=== PATIENT | male | born 1940 | race Caucasian/White ===

== ENCOUNTER → 2020-11-19 10:07 | Outpatient (BNVA) | payer MEDICARE, SELFPAY | PROVIDERS: Visit Provider Urology | DX: Z13.89 Encounter for screening for other disorder (principal) | CPT/HCPCS: 99202 ==

== ENCOUNTER → 2020-12-31 11:17 | Outpatient (BNVA) | payer MEDICARE, SELFPAY | PROVIDERS: PCP Internal Medicine; Visit Provider Urology | DX: Z13.89 Encounter for screening for other disorder (principal) | CPT/HCPCS: Q3014 ==

== ENCOUNTER → 2021-11-15 09:54 | Outpatient (BNVA) | payer MEDICARE, SELFPAY | PROVIDERS: PCP Internal Medicine; Visit Provider Urology | DX: N32.0 Bladder-neck obstruction (principal); R97.20 Elevated prostate specific antigen [PSA]; R39.11 Hesitancy of micturition | CPT/HCPCS: 51798; 99212 ==

== ENCOUNTER → 2022-12-29 10:51 | Outpatient (BNVA) | payer MEDICARE, SELFPAY | PROVIDERS: PCP Internal Medicine; Visit Provider Urology | DX: R97.20 Elevated prostate specific antigen [PSA] (principal) | CPT/HCPCS: 51798; 99212 ==

== ENCOUNTER 2023-06-22 12:31 | Outpatient (REF) | payer MEDICARE, SELFPAY ==
[2023-06-22 14:29] LABS: PSA,Total (Free>4and<10) 5.61 ng/mL (0.00-4.00)
[2023-06-25 10:59] LABS: Free Prostate Spec Ag 0.7 ng/mL; Percent Free Prostate Spec Ag 12 % (calc) (>25); Prostate Specific Ag Total 5.9 ng/mL (< OR = 4.0)
== END 2023-06-22 12:32 | disposition home or self-care (01) ==
LOC: HO.10HDL 12:31
PROVIDERS: Visit Provider Urology
DX: R97.20 Elevated prostate specific antigen [PSA] (principal); Z12.5 Encounter for screening for malignant neoplasm of prostate
CPT/HCPCS: 36415; 84153; 84154

== ENCOUNTER 2023-07-04 11:15 | Outpatient (AMB) | payer MEDICARE, SELFPAY ==
--- NOTE | 2023-07-04 11:49 | MHC.OFFVIS ---
Intake Intake Visit Reasons: 6M PSA(set) Intake Note: Patient is Present for Follow Up PSA Urology Medication: Tamsulosin Antibiotic Allergies:None Blood Thinners: None Pharmacy: [facility] Allergies No Known Allergies Allergy (Verified 07/04/23 11:51) Medication List - Last Reconciled 07/04/23 by Ethan Schaffer MD amoxicillin-pot clavulanate 875-125 mg 1 tab PO BID atorvastatin 20 mg PO BEDTIME finasteride 5 mg PO DAILY 90 days flu vac qs 2019(4 yr up)CD(PF) mL IM levothyroxine 50 mcg PO DAILY metoprolol succinate ER 50 mg PO DAILY sildenafil 100 mg PO ONCE PRN 30 days tamsulosin 0.4 mg PO BEDTIME 90 days HPI HPI Comments History of Present Illness Details Ace is a very pleasant male. He is a patient of Dr. Lofton. He is seen for the following urologic conditions - lower urinary tract symptoms SHILPI normal PSA rise Repeat PSA in 6 months with free and total Known large prostate With suggest biopsy if continues Lower urinary tract symptoms Initial presentation was with weakness of stream Good response to alpha blockers - tamsulosin Initial symptoms weakness of stream, nocturia x2, incomplete bladder emptying Investigations - 11/28 bladder ultrasound 80 g prostate with effective bladder emptying, PVR less than 20 cc - PSA 11/28 3.0 through PCP, 07/29 4.1, 06/30 5.9 12% Very happy with current function would like to stay on single agent 6 month follow-up PSA [facility] Medical History Bladder outlet obstruction Elevated PSA History of urinary hesitancy Review of Systems Const Denies chills and Denies fever(s) Card Reports no additional complaints and Denies syncope Resp Denies cough GI Denies abdominal pain and Denies heartburn Reports as per HPI and Denies change in libido Neuro Denies syncope Psych Denies change in libido Endo Denies change in libido Physical Exam Const General: cooperative, healthy appearing, comfortable and no acute distress Orientation/consciousness: patient oriented x3 HEENT Face and sinus: Yes normal facial exam Mouth: moist mucous membranes Neck Neck: Yes normal visual inspection, Yes full ROM and Yes trachea midline Chest Chest palpation & inspection: normal inspection of the chest Resp Effort & Inspection: normal respiratory effort, able to speak in complete sentences and no respiratory distress GI Inspection: Yes normal to inspection Back/Spine/Pelvis Cervical Spine: normal cervical lordosis Thoracic/Lumbar Spine: thoracic and lumbar spine normal to inspection Skin General skin exam: no rashes or lesions noted Neuro General: patient oriented x3, gait normal, tone normal and moves all extremities Extrem General: Yes normal to inspection and Yes capillary refill normal Assessment & Plan Assessment & Plan (1) Erectile dysfunction: Code(s): N52.9 - Male erectile dysfunction, unspecified Qualifiers: 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 Qualified Code(s): N52.01 - Erectile dysfunction due to arterial insufficiency Plan Six month follow-up PSA Orders: Orders PSA,Total (Free>4and<10) 6 Months R97.20 - Elevated prostate specific antigen [PSA] Medications: New sildenafil administer 60 minutes before intended activity 100 mg PO ONCE 30 days PRN 30 tabs 0RF sexual activity N52.9 - Male erectile dysfunction, unspecified finasteride 5 mg PO DAILY 90 days 90 tabs 1RF N13.8 - Other obstructive and reflux uropathy, N32.0 - Bladder-neck obstruction, N40.1 - Benign prostatic hyperplasia with lower urinary tract symptoms, R33.9 - Retention of urine, unspecified Patient Instructions: Imaging studies, laboratory and physical exam results were discussed and reviewed in detail. No major barriers to patient understanding were identified. An opportunity to ask questions regarding the treatment plan was provided. All questions were answered. The patient expressed understanding and agreement with the above treatment plan. The patient is aware they should contact our office by phone for worsening of their current condition or the appearance of new urologic symptoms. Compliance is encouraged with any medications and followup testing that is ordered. It is a privilege to participate in the urologic care of your patient. If you have any questions or concerns regarding treatment for the above conditions, or other urologic issues, please do not hesitate to contact me. The office telephone contact is [phone]. This note is constructed using voice recognition software. While every effort has been made to ensure accuracy solderer furnace errors may have been included. 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
== END 2023-07-04 12:17 | disposition home or self-care (01) ==
PROVIDERS: PCP Internal Medicine; Visit Provider Urology
DX: N52.01 Erectile dysfunction due to arterial insufficiency (principal)
CPT/HCPCS: 99213

== ENCOUNTER → 2023-07-04 11:15 | Outpatient (BNVA) | payer MEDICARE, SELFPAY | PROVIDERS: Visit Provider Urology | DX: N40.1 Benign prostatic hyperplasia with lower urinary tract symptoms (principal); N13.8 Other obstructive and reflux uropathy; R97.20 Elevated prostate specific antigen [PSA]; R39.12 Poor urinary stream; R33.8 Other retention of urine; R35.1 Nocturia; N52.01 Erectile dysfunction due to arterial insufficiency | CPT/HCPCS: 99212 ==

== ENCOUNTER 2023-12-27 12:13 | Outpatient (REF) | payer MEDICARE, SELFPAY ==
[2023-12-27 14:10] LABS: PSA,Total (Free>4and<10) 3.69 ng/mL (0.00-4.00)
== END 2023-12-27 12:14 | disposition home or self-care (01) ==
LOC: HO.10HDL 12:13
PROVIDERS: Visit Provider Urology
DX: Z12.5 Encounter for screening for malignant neoplasm of prostate (principal); R97.20 Elevated prostate specific antigen [PSA]
CPT/HCPCS: 36415; 84153

== ENCOUNTER 2024-01-01 11:43 | Outpatient (AMB) | payer MEDICARE, SELFPAY ==
--- NOTE | 2024-01-01 11:54 | MHC.OFFVIS ---
Intake Intake Visit Reasons: 6M PSA/Med Review(Sildenafil/Finasteride)confirmed Intake Note: Patient is Present for Follow Up Urology Medication:Sildenafil, Tamsulosin (Pt is requesting Refill) Antibiotic Allergies:None Blood Thinners: None Patient states he is no longer taking finasteride, Pt states that while he was on the Finasteride but stopped due to reaction. Patient became very dizzy on medication Allergies No Known Allergies Allergy (Verified 07/04/23 11:51) Medication List - Last Reconciled 01/01/24 by Ethan Schaffer MD amoxicillin-pot clavulanate 875-125 mg 1 tab PO BID atorvastatin 20 mg PO BEDTIME finasteride 5 mg PO DAILY 90 days flu vac qs 2019(4 yr up)CD(PF) mL IM levothyroxine 50 mcg PO DAILY metoprolol succinate ER 50 mg PO DAILY sildenafil 100 mg PO ONCE PRN 30 days tamsulosin 0.4 mg PO BEDTIME 90 days HPI HPI Comments History of Present Illness Details Ace is a very pleasant male. He is a patient of Dr. Lfoton. He is seen for the following urologic conditions - lower urinary tract symptoms SHILPI normal PSA fell with finasteride Had dizziness with this medication Has come off Repeat PSA in 6 months May benefit from dutasteride Lower urinary tract symptoms Initial presentation was with weakness of stream Good response to alpha blockers - tamsulosin Initial symptoms weakness of stream, nocturia x2, incomplete bladder emptying Investigations - 11/28 bladder ultrasound 80 g prostate with effective bladder emptying, PVR less than 20 cc - PSA 11/28 3.0 through PCP, 07/29 4.1, 06/30 5.9 12%, 12/29 3.7 Very happy with current function would like to stay on single agent 6 month follow-up PSA [facility] Medical History Bladder outlet obstruction Elevated PSA History of urinary hesitancy Review of Systems Const Denies chills and Denies fever(s) Card Reports no additional complaints and Denies syncope Resp Denies cough GI Denies abdominal pain and Denies heartburn Reports as per HPI and Denies change in libido Neuro Denies syncope Psych Denies change in libido Endo Denies change in libido Physical Exam Const General: cooperative, healthy appearing, comfortable and no acute distress Orientation/consciousness: patient oriented x3 HEENT Face and sinus: Yes normal facial exam Mouth: moist mucous membranes Neck Neck: Yes normal visual inspection, Yes full ROM and Yes trachea midline Chest Chest palpation & inspection: normal inspection of the chest Resp Effort & Inspection: normal respiratory effort, able to speak in complete sentences and no respiratory distress GI Inspection: Yes normal to inspection Back/Spine/Pelvis Cervical Spine: normal cervical lordosis Thoracic/Lumbar Spine: thoracic and lumbar spine normal to inspection Skin General skin exam: no rashes or lesions noted Neuro General: patient oriented x3, gait normal, tone normal and moves all extremities Extrem General: Yes normal to inspection and Yes capillary refill normal Assessment & Plan Assessment & Plan (1) Bladder outlet obstruction: Code(s): N32.0 - Bladder-neck obstruction (2) Elevated PSA: Code(s): R97.20 - Elevated prostate specific antigen [PSA] Plan Six-month follow-up PSA Orders: Orders PSA,Total (Free>4and<10) 6 Months R97.20 - Elevated prostate specific antigen [PSA] Patient Instructions: Imaging studies, laboratory and physical exam results were discussed and reviewed in detail. No major barriers to patient understanding were identified. An opportunity to ask questions regarding the treatment plan was provided. All questions were answered. The patient expressed understanding and agreement with the above treatment plan. The patient is aware they should contact our office by phone for worsening of their current condition or the appearance of new urologic symptoms. Compliance is encouraged with any medications and followup testing that is ordered. It is a privilege to participate in the urologic care of your patient. If you have any questions or concerns regarding treatment for the above conditions, or other urologic issues, please do not hesitate to contact me. The office telephone contact is [phone]. This note is constructed using voice recognition software. While every effort has been made to ensure accuracy box closing machine operator errors may have been included. Yours sincerely, Dr Ethan Schaffer MD, [facility] - Urology Providers of Expert, Compassionate Care for the Genitourinary System Coding Level of Care Code Est Pt Level 3 (50219) Diagnoses Bladder outlet obstruction N32.0 Elevated PSA R97.20
== END 2024-01-01 12:22 | disposition home or self-care (01) ==
PROVIDERS: PCP Internal Medicine; Visit Provider Urology
DX: N32.0 Bladder-neck obstruction (principal); R97.20 Elevated prostate specific antigen [PSA]
CPT/HCPCS: 99213

== ENCOUNTER → 2024-01-01 11:43 | Outpatient (BNVA) | payer MEDICARE, SELFPAY | PROVIDERS: PCP Internal Medicine; Visit Provider Urology | DX: R39.12 Poor urinary stream (principal); N32.0 Bladder-neck obstruction; R97.20 Elevated prostate specific antigen [PSA]; Z79.899 Other long term (current) drug therapy | CPT/HCPCS: 99212 ==

== ENCOUNTER 2024-06-02 09:29 | Outpatient (REF) | payer MEDICARE, SELFPAY ==
[2024-06-02 11:26] LABS: PSA,Total (Free>4and<10) 2.33 ng/mL (0.00-4.00); Prostate Specific Antigen 2.34 ng/mL (<0.05-4.0)
== END 2024-06-02 09:30 | disposition home or self-care (01) ==
LOC: HO.10HDL 09:29
PROVIDERS: Visit Provider Urology
DX: Z12.5 Encounter for screening for malignant neoplasm of prostate (principal); R97.20 Elevated prostate specific antigen [PSA]
CPT/HCPCS: 36415; 84153

== ENCOUNTER 2024-06-11 09:57 | Outpatient (AMB) | payer MEDICARE, SELFPAY ==
--- NOTE | 2024-06-11 09:58 | A.OFFVIS_ITS ---
Intake Visit Reasons: 6M Follow Up- PSA(Set) Intake Note: Patient is Present for 6m Follow Up/psa Urology Medication:Sildenafil, Tamsulosin, dutasteride, finasteride Antibiotic Allergies:None Blood Thinners: None Correctional Officer Lieutenant Required: No Allergies No Known Allergies Allergy (Verified 06/11/24 09:59) HPI Comments Details: Ace is a very pleasant male. He is a patient of Dr. Lofton. He is seen for the following urologic conditions - lower urinary tract symptoms Six-month follow-up repeat PSA Prior SHILPI normal PSA fell with finasteride - ceased secondary to side effects PSA remains low Follow-up in 12 months Suffering dizziness Has upcoming appointment with PCP Discussed potential possibilities including middle ear, cardiovascular He will concentrate on trying to assess situations where he is dizzy Lower urinary tract symptoms Initial presentation was with weakness of stream Good response to alpha blockers - tamsulosin Initial symptoms weakness of stream, nocturia x2, incomplete bladder emptying Investigations - 11/28 bladder ultrasound 80 g prostate with effective bladder emptying, PVR less than 20 cc - PSA 11/28 3.0 through PCP, 07/29 4.1, 06/30 5.9 12%, 12/29 3.7, 07/01 2.3 Very happy with current function would like to stay on single agent PFSH Medical History Bladder outlet obstruction Elevated PSA History of urinary hesitancy Review of Systems Const Denies chills and Denies fever(s) Card Reports no additional complaints and Denies syncope Resp Denies cough GI Denies abdominal pain and Denies heartburn Reports as per HPI and Denies change in libido Neuro Denies syncope Psych Denies change in libido Endo Denies change in libido Physical Exam Const General: cooperative, healthy appearing, comfortable and no acute distress Orientation/consciousness: patient oriented x3 HEENT Face and sinus: Yes normal facial exam Mouth: moist mucous membranes Neck Neck: Yes normal visual inspection, Yes full ROM and Yes trachea midline Chest Chest palpation & inspection: normal inspection of the chest Resp Effort & Inspection: normal respiratory effort, able to speak in complete sentences and no respiratory distress GI Inspection: Yes normal to inspection Back/Spine/Pelvis Cervical Spine: normal cervical lordosis Thoracic/Lumbar Spine: thoracic and lumbar spine normal to inspection Skin General skin exam: no rashes or lesions noted Neuro General: patient oriented x3, gait normal, tone normal and moves all extremities Extrem General: Yes normal to inspection and Yes capillary refill normal Results AMB Urinalysis, Automated UA Leukoctes 0 Jessy/uL Last Edit by KEN Potter on 06/11/24 10:14 UA Nitrite Negative Last Edit by Mishel Jasmine CCM on 06/11/24 10:14 UA Urobilinogen 0.2 mg/dL Last Edit by Mishel Jasmine CCM on 06/11/24 10:1 4 UA Protein 15 mg/dL Last Edit by Mishel Jasmine [facility] on 06/11/24 10:14 UA pH 6.0 Last Edit by Mishel Jasmine [facility] on 06/11/24 10:14 UA Blood 0 Severiano/uL Last Edit by Mishel Jasmine [facility] on 06/11/24 10:14 UA Specific Nephi 1.030 Last Edit by Mishel Jasmine [facility] on 06/11/24 10: 14 UA Ketone Positive Last Edit by Mishel Jasmine [facility] on 06/11/24 10:14 UA Bilirubin 2 mg/dL Last Edit by Mishel Jasmine [facility] on 06/11/24 10:14 UA Glucose 0 mg/dL Last Edit by Mishel Jasmine [facility] on 06/11/24 10:14 Results Reviewed Results Reviewed: Laboratory Last Values Urine pH (Auto) 6.0 06/11/24 10:14 Specific Nephi (Auto) 1.030 06/11/24 10:14 Urine Protein (Auto) 15 mg/dL 06/11/24 10:14 Glucose (UA)(Auto) 0 mg/dL 06/11/24 10:14 Urine Ketones (Auto) Positive 06/11/24 10:14 Urine Blood (Auto) 0 Severiano/uL 06/11/24 10:14 Urine Nitrite (Auto) Negative 06/11/24 10:14 Urine Bilirubin (Auto) 2 mg/dL 06/11/24 10:14 Urine Urobilinogen (Auto) 0.2 mg/dL 06/11/24 10:14 Leukocyte Esterase (Auto) 0 Jessy/uL 06/11/24 10:14 Assessment & Plan Assessment & Plan (1) Erectile dysfunction: Code(s): N52.9 - Male erectile dysfunction, unspecified Category: Medical Qualifiers: 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 No major barriers to patient understanding were identified. An opportunity to ask questions regarding the treatment plan was provided. All questions were answered. The patient expressed understanding and agreement with the above treatment plan. The patient is aware they should contact our office by phone for worsening of their current condition or the appearance of new urologic symptoms. Compliance is encouraged with any medications and followup testing that is ordered. It is a privilege to participate in the urologic care of your patient. If you have any questions or concerns regarding treatment for the above conditions, or other urologic issues, please do not hesitate to contact me. The office telephone contact is [phone]. This note is constructed using voice recognition software. While every effort has been made to ensure accuracy system safety manager errors may have been included. 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
== END 2024-06-11 10:29 | disposition home or self-care (01) ==
PROVIDERS: PCP Internal Medicine; Visit Provider Urology
DX: N52.01 Erectile dysfunction due to arterial insufficiency (principal); R39.11 Hesitancy of micturition; R97.20 Elevated prostate specific antigen [PSA]; Z13.9 Encounter for screening, unspecified
CPT/HCPCS: 99213

== ENCOUNTER → 2024-06-11 09:57 | Outpatient (BNVA) | payer MEDICARE, SELFPAY | PROVIDERS: PCP Internal Medicine; Visit Provider Urology | DX: R97.20 Elevated prostate specific antigen [PSA] (principal); R39.11 Hesitancy of micturition; N52.01 Erectile dysfunction due to arterial insufficiency | CPT/HCPCS: 81003; 99212 ==

== ENCOUNTER 2025-06-01 10:00 | Outpatient (REF) | payer MEDICARE, SELFPAY ==
--- OUTSIDE RECORDS SUMMARY | 2025-06-01 11:00 | XMS_ITS ---
Author Name [facility] Organization Unknown Problems Problem Status Onset Date Problem Type Date of Resoluti on Source Anemia active EncounterDiagnosisAct CCT
--- OUTSIDE RECORDS SUMMARY | 2025-06-01 11:00 | XMS_ITS | Clinical Summary ---
Author Organization [facility], Address [address] [place] [address] Phone Care Team Providers Care Band Top Maker Name Role Phone Kevin Lofton MD Primary Care Provider Allergies No known active allergies Medications levothyroxine (SYNTHROID, LEVOTHROID) 50 MCG tablet Take 50 mcg by mouth daily 08/25/2020 Active metoprolol succinate XL (TOPROL-XL) 50 MG 24 hr tablet Take 50 mg by mouth daily 08/25/2020 Active atorvastatin (LIPITOR) 20 MG tablet Take 20 mg by mouth every night 08/25/2020 Active tamsulosin (FLOMAX) 0.4 MG 24 hr capsule Take 0.4 mg by mouth 1 (one) time each day Active Blaine-3 Fatty Acids (Fish Oil) 1200 MG capsule delayed-release Take by mouth Active Active Problems Problem Noted Date Diagnosed Date Serum creatinine above reference range Hypercholesterolemia 10/12/2020 Essential (primary) hypertension 10/12/2020 Immunizations Immunization Administration Dates Next Due Influenza, MDCK, PF, Quadrivalent 07/01/2020 Family History Medical History Relation Comments Emphysema Father Hypertension Mother Relation Status Comments Father Mother Sister Alive Social History Tobacco Use Types Packs/Day Years Used Date Smoking Tobacco: Never Smokeless Tobacco: Never Alcohol Use Standard Drinks/Week Comments Never 0 (1 standard drink = 0.6 oz pur e alcohol) AUDIT-C Answer Date Recorded Q1: How often do you have a drink containing alc ohol? Never 10/12/2020 Average Number of Drinks Not on file 021 Frequency of Binge Drinking Not on file 02/2021 Sex and Gender Information Value Date Recorded Sex Assigned at Not on file Legal Sex Male 2:25 PM EST Gender Identity Not on file Sexual Orientation Not on file Plan of Treatment Health Maintenance Due Date Last Done Comments Pneumococcal Vaccine: 50+ Ye ars (1 of 2 - PCV) 1961 Influenza Vaccine (#1) 2025 07/01/2020 Hepatitis B Vaccine Aged Out No longe r eligible based on patient's age to complete this topic Insurance [facility] Care Teams Band Top Maker Relationship Specialty Start Date End Date Kevin Lofton MD [address] PCP - General Internal Medicine 09/28/20
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
--- OUTSIDE RECORDS SUMMARY | 2025-06-01 11:00 | XMS_ITS | Clinical Summary ---
Author Organization [facility] Address [address] [place] [address] Care Team Providers Care Information Scientist Name Role Phone Kevin Lofton MD Primary Care Provider [phone] Social History Tobacco Use Types Packs/Day Years Used Date Smoking Tobacco: Never Assessed Sex and Gender Information Value Date Recorded Sex Assigned at Not on file Legal Sex Male 10:43 AM EST Gender Identity Not on file Sexual Orientation Not on file Plan of Treatment Health Maintenance Due Date Last Done Comments DTaP/Tdap/Td Vaccines (1 - Tdap) 1959 Pneumococcal Vaccines 50+ (1 of 1 - PCV) 1992 Zoster (Shingles) Vaccine (1 of 2) 1992 RSV Vaccine 60 years and old er and Patients (1 - 1-dose 75+ series) 2017 COVID-19 Vaccine (2023-2 5 season) 2024 Influenza Vaccine 05/08/2025 Hepatitis B Vaccines Aged Out No long er eligible based on patient's age to complete this topic Insurance [facility] MEDIC[facility] Care Teams Information Scientist Relationship Specialty Start Date End Date Kevin Lofton MD [address] [place] [address] PCP - General Internal Medicine 09/19/24
[2025-06-01 12:01] LABS: Prostate Specific Antigen 7.13 ng/mL (<0.05-4.0)
== END 2025-06-01 10:01 | disposition home or self-care (01) ==
LOC: HO.10HDL 10:00
PROVIDERS: Visit Provider Urology
DX: Z12.5 Encounter for screening for malignant neoplasm of prostate (principal); N32.0 Bladder-neck obstruction
CPT/HCPCS: 36415; 84153

== ENCOUNTER 2025-06-11 08:33 | Outpatient (AMB) | payer MEDICARE, SELFPAY ==
--- OUTSIDE RECORDS SUMMARY | 2025-06-05 14:53 | XMS_ITS | Encounter Summary ---
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 levothyroxine (SYNTHROID, LEVOTHROID) 50 mcg tablet Take 1 tablet (50 mcg total) by mouth 1 (one) time each day before breakfast. metoprolol succinate (TOPROL-XL) 25 mg 24 hr tablet Take 1 tablet (25 mg total) by mouth 1 (one) time each day. tamsulosin (FLOMAX) 0.4 mg 24 hr capsule Take 1 capsule (0.4 mg total) by mouth. at bedtime traZODone (DESYREL) 50 mg tablet Take 1 tablet (50 mg total) by mouth at bedtime as needed. 03/25/2025 documented as of this encounter Discharge Disposition Disposition Code Departure Means Destination Home or Self Care documented in this encounter Progress Notes * Sultana Salcedo RN - 06/05/2025 3:00 PM EDT 1515: PT arrives this afternoon for pre treatment port drawn labs. PT reports feeling well after cycle 1, has mild cold sensitivity to mouth when trying to eat ice cream. Although PT denies cold sensitivity to hands nor feet. Port accessed, +BR noted after 2 flushes, labs obtained and sent, flushedper protocol and deaccessed, dressing applied. PT aware of apt Sunday, left unit amb, stable at D/C. documented in this encounter Plan of Treatment Upcoming Encounters Date Type Department Care Team (Late st Contact Info) Description 06/11/2025 12:00 PM EDT Appointment [facility] [address] [place] [phone] 06/22/2025 11:30 AM EDT Appointment [facility] [address] [place] [phone] 06/23/2025 10:00 AM EDT Appointment [facility] [address] [place] [phone] 07/06/2025 3:00 PM EDT Office Visit [facility] Oncology [address] [place] [phone] Oneil Molina MD [address] [place] [address] documented as of this encounter Procedures Procedure Name Priority Date/Time Associated Diagnosis Comments CBC WITH AUTO DIFFERENTIAL Routine 06/05/2025 2:59 PM EDT 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, CMS/HCC V28) CBC AND DIFFERENTIAL Routine 06/05/2025 2:59 PM EDT 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, CMS/HCC V28) COMPREHENSIVE METABOLIC PANEL Routine 06/05/2025 2:59 PM EDT 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, CMS/HCC V28) documented in this encounter Results * (ABNORMAL) CBC auto differential (06/05/2025 2:59 PM EDT) WBC 3.1(L) 4.8 - 10.8 K/mcL LAB HEMETOLOGY METHOD 06/05/2025 6:53 PM EDT [facility] RBC 4.10(L) 4.50 - 5.50 M/mcL LAB HEMETOLOGY METHOD [facility]/05[facility]25 6[facility] Hemoglobin 11.5(L) 13.5 - 17.5 g/dL LAB HEMETOLOGY METHOD 06/05/2025 6:53 PM EDT [facility] Hematocrit 35.1(L) 42.0 - 54.0 % LAB HEMETOLOGY METHOD 06/05/2025 6:53 PM EDT [facility] MCV 86.7 79.0 - 98.0 FL LAB HEMETOLOGY METHOD 06/05/2025 6:53 PM [facility] MCH 28.4 27.0 - 32.0 pcg LAB HEMETOLOGY METHOD 06/05/2025 6:53 PM EDT [facility] MCHC 32.8 32.0 - 37.0 g/dL LAB HEMETOLOGY METHOD 06/05/2025 6:53 PM [facility] RDW 16.5(H) 11.0 - 15.0 % LAB HEMETOLOGY METHOD 06/05/2025 6:53 PM EDT [facility] Platelets 142 130 - 400 K/mcL LAB HEMETOLOGY METHOD 06/05/2025 6:53 PM EDT [facility] MPV 10.1 7.0 - 11.0 FL LAB HEMETOLOGY METHOD 06/05/2025 6:53 PM [facility] NRBC 0.0 <1.0 % LAB HEMETOLOGY METHOD 06/05/2025 6:53 PM [facility] NRBC Absolute 0.00 <0.10 K/mcL LAB HEMETOLOGY METHOD 06/05/2025 6:53 PM [facility] Neutrophils Relative 58.3 % LAB HEMETOLOGY METHOD 06/05/2025 6:53 PM [facility] Lymphocytes Relative 29.6 % LAB HEMETOLOGY METHOD 06/05/2025 6:53 PM [facility] Monocytes Relative 8.0 % LAB HEMETOLOGY METHOD 06/05/2025 6:53 PM [facility] Eosinophils Relative 3.2 % LAB HEMETOLOGY METHOD 06/05/2025 6:53 PM [facility] Basophils Relative 0.6 % LAB HEMETOLOGY METHOD 06/05/2025 6:53 PM [facility] Immature Granulocytes Relative 0.3 % LAB HEMETOLOGY METHOD 06/05/2025 6:53 PM [facility] Neutrophils Absolute 1.81 1.50 - 7.00 K/mcL LAB HEMETOLOGY METHOD 06/05/2025 6:53 PM EDT [facility] Lymphocytes Absolute 0.92(L) 1.00 - 5.00 K/mcL LAB HEMETOLOGY METHOD 06/05/2025 6:53 PM EDT [facility] Monocytes Absolute 0.25 0.20 - 1.00 K/mcL LAB HEMETOLOGY METHOD 06/05/2025 6:53 PM EDT [facility] Eosinophils Absolute 0.10 0.00 - 0.50 K/mcL LAB HEMETOLOGY METHOD 06/05/2025 6:53 PM EDT [facility] Basophils Absolute 0.02 0.00 - 0.20 K/mcL LAB HEMETOLOGY METHOD 06/05/2025 6:53 PM EDT [facility] Immature Granulocytes Absolute 0.01 0.00 - 0.03 K/mcL LAB HEMETOLOGY METHOD 06/05/2025 6:53 PM EDT [facility] Blood Blood sample taken from central line / Unknown Existing Catheter / Unknown 06/05/2025 2:59 PM EDT 06/05/2025 6:52 PM EDT Oneil Molina MD LAB BLOOD ORDERABLE S Final Result [facility] [address] [place] [address], * (ABNORMAL) Comprehensive metabolic panel (06/05/2025 2:59 PM EDT) Sodium 140 133 - 145 mmol/L LAB CHEMISTRY METHOD 06/05/2025 5:09 PM EDT [facility] Potassium 4.0 3.5 - 5.5 mmol/L LAB CHEMISTRY METHOD 06/05/2025 5:09 PM [facility] Chloride 108 96 - 110 mmol/L LAB CHEMISTRY METHOD 06/05/2025 5:09 PM [facility] CO2 28 21 - 32 mmol/L LAB CHEMISTRY METHOD 06/05/2025 5:09 PM [facility] Anion Gap 4 3 - 11 LAB CHEMISTRY METHOD 06/05/2025 5:09 PM [facility] Glucose 99 70 - 100 mg/dL LAB CHEMISTRY METHOD 06/05/2025 5:09 PM [facility] BUN 17 5 - 25 mg/dL LAB CHEMISTRY METHOD 06/05/2025 5:09 PM [facility] Creatinine 1.45(H) 0.70 - 1.30 mg/dL LAB CHEMISTRY METHOD 06/05/2025 5:09 PM [facility] eGFR 48(L) >=60 mL/min/1. 73m2 LAB CHEMISTRY METHOD 06/05/2025 5:09 PM [facility] Comment:Calculation based on the Chronic Kidney Disease Epidemiology Collaboration (CKD-EPI) equation refit without adjustment for race. BUN/Creatinine Ratio 11.7 LAB CHEMISTRY METHOD 06/05/2025 5:09 PM [facility] Calcium 8.8 8.5 - 10.5 mg/dL LAB CHEMISTRY METHOD 06/05/2025 5:09 PM [facility] AST (SGOT) 14 10 - 42 unit/L LAB CHEMISTRY METHOD 06/05/2025 5:09 PM [facility] ALT (SGPT) 14 10 - 60 unit/L LAB CHEMISTRY METHOD 06/05/2025 5:09 PM [facility] Alkaline Phosphatase 75 42 - 121 unit/L LAB CHEMISTRY METHOD 06/05/2025 5:09 PM [facility] Total Protein 6.2 6.0 - 8.0 g/dL LAB CHEMISTRY METHOD 06/05/2025 5:09 PM [facility] Albumin 3.7 3.2 - 5.0 g/dL LAB CHEMISTRY METHOD 06/05/2025 5:09 PM EDT [facility] Total Bilirubin 1.0 0.0 - 1.4 mg/dL LAB CHEMISTRY METHOD 06/05/2025 5:09 PM EDT [facility] Blood Blood sample taken from central line / Unknown Existing Catheter / Unknown 06/05/2025 2:59 PM EDT 06/05/2025 4:33 PM EDT us Subramony Jesse DIOP LAB BLOOD ORDERABLE S Final Result [facility] [address] [place] [address], documented in this encounter Visit Diagnoses Diagnosis 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
--- OUTSIDE RECORDS SUMMARY | 2025-06-09 09:45 | XMS_ITS | Encounter Summary ---
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, CMS/HCC V28) Oneil Molina MD [address] [place] [address] Phone: tel: fax: [facility] [address] [place] [phone] Phone: tel: fax: Referral ID Status Reason Start Date Expiration Date V isits Requested Visits Authorized [id number] Authorized 05/18/2025 05/18/2026 1 13 Encounter Details Date Type Department Care Team (Latest Contact Info) Description 06/09/2025 9:45 AM EDT Hospital Encounter [facility] [address] [place] [phone] Oneil Molina MD [address] [place] [address] 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, CMS/HCC V28) (Primary Dx) Social History Tobacco Use Types Packs/Day Years [...] AM EDT documented as of this encounter Last Filed Vital Signs Vital Sign Reading Time Taken Comments Blood Pressure 117/57 06/09/2025 9:55 AM EDT Pulse 67 06/09/2025 9:55 AM EDT Temperature 36.6 C (97.8 F) 06/09/2025 9:55 AM EDT Respiratory Rate - - Oxygen Saturation 100% 06/09/2025 9:55 AM EDT Inhaled Oxygen Concentration - - Weight 79.5 kg (175 lb 3.2 oz) 06/09/2025 9:55 A M EDT Height 177.8 cm (5' 10 ) 06/09/2025 9:55 AM EDT Body Mass Index 25.14 06/09/2025 9:55 AM EDT documented in this encounter Progress Notes * Deidra Hess RN - 06/09/2025 10:00 AM EDT Pt arrives fro C2 of chemo with steady gait to unit . documented in this encounter Plan of Treatment Upcoming Encounters Date Type Department Care Team (Late st Contact Info) Description 06/11/2025 12:00 PM EDT Appointment [facility] [address] [place] [phone] 06/22/2025 11:30 AM EDT Appointment [facility] [address] [place] [phone] 06/23/2025 10:00 AM EDT Appointment [facility] [address] [place] [phone] 07/06/2025 3:00 PM EDT Office Visit [facility] On[facility] [address] [place] [address] Oneil Molina MD [address] [place] [phone] documented as of this encounter Visit Diagnoses Diagnosis 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, CMS/HCC V28)- Primary Malignant neoplasm of hepatic flexure documented in this encounter Administered Medications Inactive Administered Medications - up to 3 most recent administrations Medication Order MAR Action Action Date Dose Rate Site dexAMETHasone (DECADRON) injection 12 mg 12 mg, intravenous, Once, On Sun06/09/25 at 1030, For 1 doseIndications: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 This agent requires a central venous access device for administration in this regimen. Protect from light Antineoplastic Hazardous Medication - Double pair of ASTM standard [id number] certified gloves - Hazardous gown - Eye/face protection if liquid that could splash - CSTD required when possibleIndications:Malignan t neoplasm of hepatic flexure (CMS/HCC V24, CMS/HCC V28) Given 06/09/2025 2:07 PM EDT 4,750 mg 3 mL/hr fluorouracil (ADRUCIL) chemo injection 800 mg 800 mg (rounded from 788 mg = 400 mg/m2 1.97 m2), intravenous, at 96 mL/hr, Administer over 10 Minutes, Once, On Sun06/09/25 at 1230, For 1 dose, IV push Protect from light Antineoplastic Hazardous Medication - Double pair of ASTM standard [id number] certified gloves - Hazardous gown - Eye/face protection if liquid that could splash - CSTD required when possibleIndications:Malignan t neoplasm of hepatic flexure (CMS/HCC V24, CMS/HCC V28) Given 06/09/2025 2:07 PM EDT 800 mg 96 mL/hr leucovorin 800 mg in dextrose 290 mL IVPB 800 mg (rounded from 788 mg = 400 mg/m2 1.97 m2), intravenous, at 193.3 mL/hr, Administer over 90 Minutes, Once, On Sun06/09/25 at 1100, For 1 dose, Run concurrent with OXALIplatin infusion, so that the two drugs end at approximately the same time.Indications: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 This agent is an irritant. Infuse OXALiplatin and leucovorin concurrently. Antineoplastic Hazardous Medication - Double pair of ASTM standard [id number] certified gloves - Hazardous gown - Eye/face protection if liquid that could splash - CSTD required when possibleIndications:Malignan t neoplasm of hepatic flexure (CMS/HCC V24, CMS/HCC V28) New Bag 06/09/2025 11:48 AM EDT 165 mg 188.7 mL/hr documented in this encounter Orders Medications Ordered That Milo ht Not Have Been Administered Count Last Ordered Date First Ordered Date ondansetron (PF) (ZOFRAN) injection 16 mg 1 06/09/2025 Nursing Count Last Ordered Date First Orde red Date NCCN PARAMETERS 1 06/09/2025 NCCN PARAMETERS - FLUOROURACIL 1 06/09/2025 NCCN PARAMETERS - LEUCOVORIN 1 06/09/2025 NCCN PARAMETERS - OXALIPLATIN 1 06/09/2025 ONC NURSING COMMUNICATION 2 06/09/2025 ONC NURSING COMMUNICATION 11 1 06/09/2025 ONC NURSING COMMUNICATION 2 1 06/09/2025 ONC NURSING COMMUNICATION 3 1 06/09/2025 TREATMENT CONDITIONS 3 06/09/2025 documented in this encounter Care Teams Music Grapher Relationship Specialty Start Date End Date Kevin Lofton MD [address] [place] [address] PCP - General Internal Medicine 10/28/24 documented as of this encounter
--- NOTE | 2025-06-11 08:33 | MHC.OFFVIS ---
Intake Visit Reasons: 1y/PSA Intake Note: Patient is Present for 1 yr follow up Urology Medication:, Tamsulosin, Antibiotic Allergies:None Blood Thinners: None Labs done 06/01/25 : PSA 7.13 Sql Database Administrator Required: No Accompanied by: Self / Same As Patient Allergies No Known Allergies Allergy (Verified 06/11/25 08:34) HPI Comments Details: Ace is a very pleasant male. He is a patient of Dr. Lofton. He is seen for the following urologic conditions - lower urinary tract symptoms Twelve month follow-up Prior SHILPI normal PSA fell with finasteride - ceased secondary to side effects Rebound PSA increase Currently undergoing chemotherapy for colorectal cancer Urinary Symptoms Review - Normal urinary stream with effective bladder emptying - Tamsulosin is effective in managing urinary symptoms Lower urinary tract symptoms Initial presentation was with weakness of stream Good response to alpha blockers - tamsulosin Initial symptoms weakness of stream, nocturia x2, incomplete bladder emptying Investigations - 11/28 bladder ultrasound 80 g prostate with effective bladder emptying, PVR less than 20 cc - PSA 11/28 3.0 through PCP, 07/29 4.1, 06/30 5.9 12%, 12/29 3.7, 07/01 2.3, 06/01 7.2 Very happy with current function would like to stay on single agent PFSH Medical History Bladder outlet obstruction Elevated PSA History of urinary hesitancy Review of Systems Const Denies chills and Denies fever(s) Card Reports no additional complaints and Denies syncope Resp Denies cough GI Denies abdominal pain and Denies heartburn Reports as per HPI and Denies change in libido Neuro Denies syncope Psych Denies change in libido Endo Denies change in libido Physical Exam Const General: cooperative, healthy appearing, comfortable and no acute distress Orientation/consciousness: patient oriented x3 HEENT Face and sinus: Yes normal facial exam Mouth: moist mucous membranes Neck Neck: Yes normal visual inspection, Yes full ROM and Yes trachea midline Chest Chest palpation & inspection: normal inspection of the chest Resp Effort & Inspection: normal respiratory effort, able to speak in complete sentences and no respiratory distress GI Inspection: Yes normal to inspection Back/Spine/Pelvis Cervical Spine: normal cervical lordosis Thoracic/Lumbar Spine: thoracic and lumbar spine normal to inspection Skin General skin exam: no rashes or lesions noted Neuro General: patient oriented x3, gait normal, tone normal and moves all extremities Extrem General: Yes normal to inspection and Yes capillary refill normal Assessment & Plan Assessment & Plan (1) Bladder outlet obstruction: Code(s): N32.0 - Bladder-neck obstruction Category: Medical (2) Erectile dysfunction: Code(s): N52.9 - Male erectile dysfunction, unspecified Category: Medical Qualifiers: 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 Onychomycosis - DNA testing for diagnosis Discussion Notes I discussed with the patient the importance of continuing PSA monitoring and the effectiveness of tamsulosin for urinary symptoms. We also reviewed the ongoing chemotherapy for colorectal cancer and the potential side effects to watch for, such as fatigue and brain fog. Additionally, I suggested considering DNA testing for onychomycosis to ensure accurate diagnosis and treatment. Patient Instructions - Continue taking tamsulosin as prescribed. - Monitor for any new or worsening symptoms and report them. - Schedule annual PSA tests. - Consider DNA testing for nail issues. Orders: Orders PSA,Total (Free>4and<10) 12 Months N32.0 - Bladder-neck obstruction Medications: Refilled tamsulosin 0.4 mg PO BEDTIME 90 caps 3RF 90 days N32.0 - Bladder-neck obstruction, N40.1 - Benign prostatic hyperplasia with lower urinary tract symptoms Patient Instructions: This note is constructed using voice recognition software. While every effort has been made to ensure accuracy diesel trailer mechanic errors may have been included. Imaging studies, laboratory and physical exam results were discussed and reviewed in detail. No major barriers to patient understanding were identified. An opportunity to ask questions regarding the treatment plan was provided. All questions were answered. The patient expressed understanding and agreement with the above treatment plan. The patient is aware they should contact our office by phone for worsening of their current condition or the appearance of new urologic symptoms. Compliance is encouraged with any medications and followup testing that is ordered. It is a privilege to participate in the urologic care of your patient. If you have any questions or concerns regarding treatment for the above conditions, or other urologic issues, please do not hesitate to contact me. The office telephone contact is [phone]. 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
--- OUTSIDE RECORDS SUMMARY | 2025-06-11 09:04 | XMS_ITS | Clinical Summary ---
Author Organization [facility], Address [address] [place] [address] Phone Care Team Providers Care Communications Strategist Name Role Phone Kevin Lofton MD Primary Care Provider [phone] Allergies No known active allergies Medications levothyroxine [...] mouth 1 (one) time each day Active [place]-3 Fatty Acids (Fish Oil) 1200 MG capsule [...] patient's age to complete this topic Insurance [facility] Care Teams Communications Strategist Relationship Specialty Start Date End Date Kevin Lofton MD [address] PCP - General Internal Medicine 09/28/20
--- OUTSIDE RECORDS SUMMARY | 2025-06-11 09:04 | XMS_ITS | Encounter Summary ---
Author Organization [facility] Address [address] [place] [address] Care Team Providers Care Scout Executive Name Role Phone Kevin Lofton MD Primary Care Provider [phone] Encounter Details Date Type Department Care Team (Late st Contact Info) Description 05/19/[address] [phone] Ekta Gutiérrez [place] Social History Tobacco Use [...] Info) Description 06/11/2025 12:00 PM EDT Appointment [facility] [address] [place] [phone] 06/22/2025 11:30 AM EDT Appointment [facility] [address] [place] [phone] 06/23/2025 10:00 AM EDT Appointment [facility] [address] [place] [address], [place] [phone] 07/06/2025 3:00 PM EDT Office Visit [facility] Oncology [address] [place] [phone] Oneil Molina MD [address] [place] [phone] documented as of this encounter Visit Diagnoses Not on filedocumented in this encounter Care Teams Scout Executive Relationship Specialty Start Date End Date Kevin Lofton MD [address] [place] [address] PCP - General Internal Medicine 10/28/24 documented as of this encounter
--- OUTSIDE RECORDS SUMMARY | 2025-06-11 09:04 | XMS_ITS | Clinical Summary ---
Author Organization Formerly [facility] Address [address] [place] [address] Care Team Providers Care Metal Gauge Maker Name Role Phone Kevin Lofton MD Primary Care Provider [phone] Social History Tobacco Use Types Packs/Day Years Used Date Smoking Tobacco: Never Assessed Sex and Gender Information Value Date Recorded Sex Assigned at Not on file Legal Sex Male 10:43 AM EST Gender Identity Not on file Sexual Orientation Not on file Plan of Treatment Health Maintenance Due Date Last Done Comments Advance Care Planning 1940 DTaP/Tdap/Td Vaccines (1 - Tdap) 1961 Pneumococcal Vaccines 50+ (1 of 1 - PCV) 1992 Zoster (Shingles) Vaccine (1 of 2) 1992 RSV Vaccine 60 years and old er and Patients (1 - 1-dose 75+ series) 2017 COVID-19 Vaccine ( - 2023-2 5 season) 2024 Influenza Vaccine 05/08/2025 Hepatitis B Vaccines Aged Out No long er eligible based on patient's age to complete this topic Insurance [facility] MEDICARE Care Teams Metal Gauge Maker Relationship Specialty Start Date End Date Kevin Lofton MD [address] [place] [address] PCP - General Internal Medicine 09/19/24
--- OUTSIDE RECORDS SUMMARY | 2025-06-11 09:04 | XMS_ITS ---
Author Organization [facility] [address] [facility] Address [address] [place] [address] Phone Care Team Providers Care Power Lineman Name Role Phone Kevin Lofton MD Primary Care Provider [phone] Active Problems Problem Noted Date Diagnosed Date Neuroendocrine carcinoma of appendix ([facility] V24, [facility] V28) 04/06/2025 Bloating 02/26/2025 Iron deficiency anemia due to chronic blood loss 02/20/2025 Malignant neoplasm of hepati c flexure ([facility] V24, [facility] V28) 02/05/2025 Cancer Staging:Pathologic stage from 03/09/2025:Stage IIIB(pT3, pN1b, cM0) - Signed by Oneil Molina MD on 04/06/2025 HTN (hypertension) 02/04/2025 Pacemaker 02/04/2025 Hypothyroidism 02/04/2025 Chronic renal impairment, 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) ([facility] V24, [facility] V28) 02/04/2025 Current Oncology Plans FOLFOX ( Fluorouracil Continuous Infusion / Leucovorin / OXALIplatin )* Plan Start Date:05/24/2025 Plan Provider:Oneil Molina MD Linked Problems Malignant neoplasm of hepati c flexure ([facility] V24, [facility] V28) Treatment Medications Current Day (Day 1 , Cycle 3 - Planned for 06/22/2025) Next Day (Day 3, Cycle 3 - Planned for 06/24/2025) 5-FU (ADRUCIL) chemo infusio n 100 mL - for home use solutionfluorouracil (ADRUCIL)leucovorinleucovorin IVPB in D5W (350 mg vial)OXALIplatin (ELOXATIN)OXALIplatin (ELOXATIN) chemo infusion fluorouracil (ADRUCIL) 4,750 mg in sodium chloride 0.9 % 100 mL chemo infusionfluorouracil (ADRUCIL) chemo injectionleucovorin IVPBOXALIplatin (ELOXATIN) chemo infusion No medications scheduled. Other Current Plans FERUMOXYTOL ( FERAHEME ) 510 mg IVPB* Plan Start Date:02/27/2025 Plan Provider:Oneil Molina MD Linked Problems Iron deficiency anemia due t o chronic blood loss Treatment Medications No medications scheduled. Past Plans No past plan information found. Radiation Treatments * No radiation treatments are documented for this patient in [facility]. Treatments may have been administered in another system. Lifetime Dose Tracking * Chemical Lifetime Dose Automatic Entry Manual Entr y Fluoro Time 1.7 minutes 1.7 minutes 0 minutes Air Kerma 23 mGy 23 mGy 0 mGy
--- OUTSIDE RECORDS SUMMARY | 2025-06-11 09:04 | XMS_ITS | Clinical Summary ---
Author Organization [facility] [address] [facility] Address [address] [place] [address] Phone Care Team Providers Care Morphology Teacher Name Role Phone Kevin Lofton MD Primary Care Provider [phone] Allergies No known active allergies Medications metoprolol succinate (TOPROL-XL) 25 mg 24 hr tablet Take 1 tablet (25 mg total) by mouth 1 (one) time each day. Active levothyroxine (SYNTHROID, LEVOTHROID) 50 mcg tablet Take 1 tablet (50 mcg total) by mouth 1 (one) time each day before breakfast. Active atorvastatin (LIPITOR) 20 mg tablet Take 1 tablet (20 mg total) by mouth 1 (one) time each day. Active tamsulosin (FLOMAX) 0.4 mg 24 hr capsule Take 1 capsule (0.4 mg total) by mouth. at bedtime Active traZODone (DESYREL) 50 mg tablet Take 1 tablet (50 mg total) by mouth at bedtime as needed. 025 Active ondansetron ODT (ZOFRAN-ODT) 8 mg disintegrating tabletIndications :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, CMS/HCC V28) Dissolve 1 tablet (8 mg total) on top of the tongue every 8 (eight) hours if needed for nausea or vomiting. 20 tablet 11 025 2024 Discontinued prochlorperazine (COMPAZINE) 10 mg tablet Take 1 tablet (10 mg total) by mouth every 6 (six) hours if needed for vomiting or nausea. 60 tablet 3 025 2024 Discontinued lidocaine-priloca ine (EMLA) 2.5-2.5 % creamIndications: Malignant neoplasm of hepatic flexure ([facility] V24, [facility] V28) Apply 1 Application topically 1 (one) time for 1 dose. 30 minutes prior to Mediport access 30 g 2 025 2024 Additional Information Patient not taking.Reported on 05/19/2025 Active Problems Problem Noted Date Diagnosed Date Neuroendocrine carcinoma of appendix ([facility] V24, [facility] V28) 04/06/2025 Bloating 02/26/2025 Iron deficiency anemia due to chronic blood loss 02/20/2025 Malignant neoplasm of hepati c flexure ([facility] V24, [facility] V28) 02/05/2025 Cancer Staging:Pathologic stage from 03/09/2025:Stage IIIB(pT3, pN1b, cM0) - Signed by Oneil Molina MD on 04/06/2025 HTN (hypertension) 02/04/2025 Pacemaker 02/04/2025 Hypothyroidism 02/04/2025 Chronic renal impairment, 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) ([facility] V24, [facility] V28) 02/04/2025 Encounters Date Type Department Care Team Description 06/09/2025 9:45 AM EDT Hospital Encounter [address] [phone] Oneil Lilly MD Malignant neoplasm of hepatic flexure ([facility]/HCC V24, [facility] V28) (Primary Dx) 06/05/2025 2:53 PM EDT - 06/05/2025 11:59 PM EDT Hospital Encounter [address] [phone] Oneil Lilly MD Malignant neoplasm of hepatic flexure ([facility] V24, [facility] V28) (Primary Dx) Discharge Disposition: Home or Self Care 06/05/2025 2:45 PM EDT Office Visit [facility] Hematology Oncology [address] [place] [phone] Lawramonia-Iy erOneil MD 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, CMS/HCC V28) (Primary Dx); Neuroendocrine carcinoma of appendix (CMS/HCC V24, CMS/HCC V28); Chronic renal impairment, stage 3a (CMS/HCC V24, CMS/HCC V28); Iron deficiency anemia due to chronic blood loss 05/27/2025 10:52 AM EDT - 05/27/2025 11:59 PM EDT Hospital Encounter [facility] Infusion Center [address] [place] [phone] Lawramonia-Iy Oneil randall MD 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, CMS/HCC V28) (Primary Dx) Discharge Disposition: Home or Self Care 05/25/2025 7:44 AM EDT - 05/25/2025 11:59 PM EDT Hospital Encounter [facility] [address] [place] [phone] Lawramonia-Iy Oneil randall MD Malignant neoplasm of hepatic flexure ([facility]/HCC V24, CMS/HCC V28) (Primary Dx) Discharge Disposition: Home or Self Care 05/25/[address] [facility] [address] [place] [phone] Al Jones LMSW 05/19/2025 2:00 PM EDT Office Visit General Surgery [facility] [address] [phone] Felice Martinez MD 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, CMS/HCC V28) (Primary Dx) 05/19/[address] [facility] [address] [place] [phone] Ekta Gutiérrez [place] 05/18/2025 2:45 PM EDT Office Visit [facility] Hematology Oncology [address] [place] [phone] Lawramonia-Iy Oneil randall MD 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, CMS/HCC V28) (Primary Dx); Neuroendocrine carcinoma of appendix (CMS/HCC V24, CMS/HCC V28); Iron deficiency anemia due to chronic blood loss; Chronic renal impairment, stage 3a (CMS/HCC V24, CMS/HCC V28); Acquired hypothyroidism 05/05/2025 11:54 AM EDT - 05/05/2025 11:59 PM EDT Hospital Encounter [facility] Interventional Radiology [address] [place] [phone] 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, CMS/HCC V28) Discharge Disposition: Home or Self Care 04/17/[address] [facility] Hematology Oncology [address] [place] [phone] Lawramonia-Iy Oneil randall MD 04/06/[address] [facility] Hematology Oncology [address] [place] [phone] Subramonia-Iy Oneil randall MD 04/03/2025 11:15 AM EDT Office Visit [facility] Hematology Oncology [address] [place] [phone] Lawramonia-Iy Oneil randall MD 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, CMS/HCC V28) (Primary Dx); Coagulopathy (CMS/HCC V24); Iron deficiency anemia due to chronic blood loss; Chronic renal impairment, stage 3a (CMS/HCC V24, CMS/HCC V28); Neuroendocrine carcinoma of appendix (CMS/HCC V24, CMS/HCC V28) 03/24/2025 1:30 PM EDT Office Visit General Surgery - [facility] [address] [facility] [address] [place] [phone] Felice Martinez MD 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, CMS/HCC V28) (Primary Dx) from Last 3 Months Surgical History Surgery Date Site/Laterality Comments PACEMAKER IMPLANT OTHER SURGICAL HISTORY COLONOSCOPY Medical History Medical History Date Comments Hypertension Hyperlipidemia Hypothyroid Skin cancer Pacemaker Diverticulosis Dizziness Heart disease PACEMAKER Social History Tobacco Use Types Packs/Day Years Used Date Smoking Tobacco: Former Cigarettes Smokeless Tobacco: Never Tobacco Cessation:Counseling Given: Not Answered Alcohol Use Standard Drinks/Week Comments Yes 1 [...] Orientation Straight 03/05/2025 11 :04 AM EDT Obstetrics History Last Filed Vital Signs Vital Sign Reading Time Taken Comments Blood Pressure 117/57 06/09/2025 9:55 AM EDT Pulse 67 06/09/2025 9:55 AM EDT Temperature 36.6 C (97.8 F) 06/09/2025 9:55 AM EDT Respiratory Rate 18 05/25/2025 8:10 AM EDT Oxygen Saturation 100% 06/09/2025 9:55 AM EDT Inhaled Oxygen Concentration - - Weight 79.5 kg (175 lb 3.2 oz) 06/09/2025 9:55 A M EDT Height 177.8 cm (5' 10 ) 06/09/2025 9:55 AM EDT Body Mass Index 25.14 06/09/2025 9:55 AM EDT Plan of Treatment Upcoming Encounters Date Type Department Care Team (Late st Contact Info) Description 06/11/2025 12:00 PM EDT Appointment [address] [phone] 06/22/2025 11:[address] [facility] In[facility] [address] [place] [phone] 06/23/2025 10:00 AM EDT Appointment [address] [phone] 07/06/2025 3:00 PM EDT Office Visit [facility] Hematology Oncology [address] [place] [phone] Oneil Molina MD [address] [place] [phone] Health Maintenance Due Date Last Done Comments DTaP,Tdap,and Td Vaccines (1 - Tdap) 1961 RSV Immunization Adult Patients (1 - 1-dose 75+ series) 2017 Cholesterol Screening (Lipid Panel) 10/07/2024 Medicare Annual Wellness Visit 10/07/2024 Social Influencers of Health Screening 10/07/2024 Depression Screening 10/08/2024 COVID-19 Vaccine ( season) 2025 09/03/2023, 08/31/2021, 12/23/2020, Additional history exists Influenza Vaccine (#1) 2025 , 09/03/2023, 08/07/2022, Additional history exists Hypertension/CHF/CAD Annual BMP Blood Test 06/05/2026 06/05/2025, 05/18/2025, 04/03/2025, Additional history exists Falls Risk Assessment 06/09/2026 06/09/2025 Zoster Vaccines Completed 06/05/2022, 02/11/2022 Pneumococcal Vaccine: 50+ Years Completed 01/22/2025 HIB Vaccines Aged Out No longer eligi ble based on patient's age to complete this topic HPV Vaccines Aged Out No longer eligi ble based on patient's age to complete this topic Hepatitis A Vaccines Aged Out No long er eligible based on patient's age to complete this topic Hepatitis B Vaccines Aged Out No long er eligible based on patient's age to complete this topic IPV Vaccines Aged Out No longer eligi ble based on patient's age to complete this topic MMR Vaccines Aged Out No longer eligi ble based on patient's age to complete this topic Meningococcal ACWY Vaccine Aged Out N o longer eligible based on patient's age to complete this topic Meningococcal B Vaccine Aged Out No l onger eligible based on patient's age to complete this topic RSV Immunization Patients Under 20 months Aged Out No longer eligible based on patient's age to complete this topic Varicella Vaccines Aged Out No longer eligible based on patient's age to complete this topic Medical Devices Implanted Type Area Liquor Tester Device Identifier Shelf Expiration Date Model / Serial / Lot Cardiac Pacemaker Cardiac Pacemaker Left: Chest Port Pwr Slim Poly 6f Radha Inte Attach - [id number] - [id number] Implanted:Qty: 1 on 05/05/2025 by Terry Kurtz MD at [facility]/Ines pheral Catheters and Ports Right: Chest Wall CR BARD PERIPHERAL VASCULAR [id number] 12/05/2025 [id number] / [id number] / [id number] Procedures Procedure Name Priority Date/Time Associated Diagnosis Comments CBC WITH AUTO DIFFERENTIAL Routine 06/05/2025 2:59 PM EDT 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, CMS/HCC V28) COMPREHENSIVE METABOLIC PANEL Routine 06/05/2025 2:59 PM EDT 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, CMS/HCC V28) CBC AND DIFFERENTIAL Routine 06/05/2025 2:59 PM EDT 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, CMS/HCC V28) CBC WITH AUTO DIFFERENTIAL Routine 05/18/2025 2:59 PM EDT 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, CMS/HCC V28) COMPREHENSIVE METABOLIC PANEL Routine 05/18/2025 2:59 PM EDT 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, CMS/HCC V28) CBC AND DIFFERENTIAL Routine 05/18/2025 2:59 PM EDT 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, CMS/HCC V28) IRON AND TIBC Routine 05/18/2025 2:59 PM EDT 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, CMS/HCC V28) Iron deficiency anemia due to chronic blood loss FERRITIN Routine 05/18/2025 2:59 PM EDT 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, CMS/HCC V28) Iron deficiency anemia due to chronic blood loss VITAMIN B12 AND FOLATE Routine 2:59 PM EDT 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, CMS/HCC V28) IR INSERT TUNNELED CVAD W SUBQ PORT MORE 5YRS RIGHT Routine 05/05/2025 1:56 PM EDT 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, CMS/HCC V28) CBC WITH AUTO DIFFERENTIAL Routine 04/03/2025 12:04 PM EDT 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, CMS/HCC V28) IRON AND TIBC Routine 04/03/2025 12:04 PM EDT Iron deficiency anemia due to chronic blood loss FERRITIN Routine 04/03/2025 12:04 PM EDT Iron deficiency anemia due to chronic blood loss PROTHROMBIN TIME WITH INR Routine 04/03/2025 12:04 PM EDT 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, CMS/HCC V28) Coagulopathy (CMS/HCC V24) CARCINOEMBRYONIC ANTIGEN Routine 025 12:04 PM EDT 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, CMS/HCC V28) COMPREHENSIVE METABOLIC PANEL Routine 04/03/2025 12:04 PM EDT 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, CMS/HCC V28) CBC AND DIFFERENTIAL Routine 04/03/2025 12:04 PM EDT 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, CMS/HCC V28) from Last 3 Months Results * (ABNORMAL) CBC auto differential (06/05/2025 2:59 PM EDT) Only the most recent of3 resultswithin the time period is included. WBC 3.1(L) 4.8 - 10.8 K/mcL LAB HEMETOLOGY [facility] 06/05[facility]2025 6[facility] RBC 4.10(L) 4.50 - 5.50 M/mcL LAB HEMETOLOGY METHOD 06/05/2025 6:53 [facility] Hemoglobin 11.5(L) 13.5 - 17.5 g/dL LAB HEMETOLOGY METHOD 06/05/2025 6:53 PM [facility] Hematocrit 35.1(L) 42.0 - 54.0 % LAB HEMETOLOGY METHOD 06/05/2025 6:53 PM [facility] MCV 86.7 79.0 - 98.0 FL LAB HEMETOLOGY METHOD 06/05/2025 6:53 PM [facility] MCH 28.4 27.0 - 32.0 pcg LAB HEMETOLOGY METHOD 06/05/2025 6:53 PM [facility] MCHC 32.8 32.0 - 37.0 g/dL LAB HEMETOLOGY METHOD 06/05/2025 6:53 PM [facility] RDW 16.5(H) 11.0 - 15.0 % LAB HEMETOLOGY METHOD 06/05/2025 6:53 PM [facility] Platelets 142 130 - 400 K/mcL LAB HEMETOLOGY METHOD 06/05/2025 6:53 PM [facility] MPV 10.1 7.0 - 11.0 FL LAB HEMETOLOGY METHOD 06/05/2025 6:53 PM [facility] NRBC 0.0 <1.0 % LAB HEMETOLOGY METHOD 06/05/2025 6:53 PM [facility] NRBC Absolute 0.00 <0.10 K/mcL LAB HEMETOLOGY METHOD 06/05/2025 6:53 PM [facility] Neutrophils Relative 58.3 % LAB HEMETOLOGY METHOD 06/05/2025 6:53 PM EDT [facility] Lymphocytes Relative 29.6 % LAB HEMETOLOGY METHOD 06/05/2025 6:53 PM EDT [facility] Monocytes Relative 8.0 % LAB HEMETOLOGY METHOD 06/05/2025 6:53 [facility] Eosinophils Relative 3.2 % LAB HEMETOLOGY METHOD 06/05/2025 6:53 [facility] Basophils Relative 0.6 % LAB HEMETOLOGY METHOD 06/05/2025 6:53 PM [facility] Immature Granulocytes Relative 0.3 % LAB HEMETOLOGY METHOD 06/05/2025 6:53 PM [facility] Neutrophils Absolute 1.81 1.50 - 7.00 K/mcL LAB HEMETOLOGY METHOD 06/05/2025 6:53 PM [facility] Lymphocytes Absolute 0.92(L) 1.00 - 5.00 K/mcL LAB HEMETOLOGY METHOD 06/05/2025 6:53 PM [facility] Monocytes Absolute 0.25 0.20 - 1.00 K/mcL LAB HEMETOLOGY METHOD 06/05/2025 6:53 PM [facility] Eosinophils Absolute 0.10 0.00 - 0.50 K/mcL LAB HEMETOLOGY METHOD 06/05/2025 6:53 PM [facility] Basophils Absolute 0.02 0.00 - 0.20 K/mcL LAB HEMETOLOGY METHOD 06/05/2025 6:53 PM [facility] Immature Granulocytes Absolute 0.01 0.00 - 0.03 K/mcL LAB HEMETOLOGY METHOD 06/05/2025 6:53 PM [facility] Blood Blood sample taken from central line / Unknown Existing Catheter / Unknown 06/05/2025 2:59 PM EDT 06/05/2025 6:52 PM EDT us Oneil Molina MD LAB BLOOD ORDERABLE S Final Result [facility] [address] [place] [address], [place] [phone] * (ABNORMAL) Comprehensive metabolic panel (06/05/2025 2:59 PM EDT) Only the most recent of3 resultswithin the time period is included. Sodium 140 133 - 145 mmol/L LAB CHEMISTRY METHOD 06/05/2025 5:09 PM [facility] Potassium 4.0 3.5 - 5.5 mmol/L LAB CHEMISTRY METHOD 06/05/2025 5:09 PM [facility] Chloride 108 96 - 110 mmol/L LAB CHEMISTRY METHOD 06/05/2025 5:09 PM [facility] CO2 28 21 - 32 mmol/L LAB CHEMISTRY METHOD 06/05/2025 5:09 PM [facility] Anion Gap 4 3 - 11 LAB CHEMISTRY METHOD 06/05/2025 5:09 PM [facility] Glucose 99 70 - 100 mg/dL LAB CHEMISTRY METHOD 06/05/2025 5:09 PM [facility] BUN 17 5 - 25 mg/dL LAB CHEMISTRY METHOD 06/05/2025 5:09 PM [facility] Creatinine 1.45(H) 0.70 - 1.30 mg/dL LAB CHEMISTRY METHOD 06/05/2025 5:09 PM [facility] eGFR 48(L) >=60 mL/min/1. 73m2 LAB CHEMISTRY METHOD 06/05/2025 5:09 PM [facility] Comment:Calculation based on the Chronic Kidney Disease Epidemiology Collaboration (CKD-EPI) equation refit without adjustment for race. BUN/Creatinine Ratio 11.7 LAB CHEMISTRY METHOD 06/05/2025 5:09 PM EDT [facility] Calcium 8.8 8.5 - 10.5 mg/dL LAB CHEMISTRY METHOD 06/05/2025 5:09 PM [facility] AST (SGOT) 14 10 - 42 unit/L LAB CHEMISTRY METHOD 06/05/2025 5:09 PM [facility] ALT (SGPT) 14 10 - 60 unit/L LAB CHEMISTRY METHOD 06/05/2025 5:09 PM [facility] Alkaline Phosphatase 75 42 - 121 unit/L LAB CHEMISTRY METHOD 06/05/2025 5:09 PM [facility] Total Protein 6.2 6.0 - 8.0 g/dL LAB CHEMISTRY METHOD 06/05/2025 5:09 PM [facility] Albumin 3.7 3.2 - 5.0 g/dL LAB CHEMISTRY METHOD 06/05/2025 5:09 PM [facility] Total Bilirubin 1.0 0.0 - 1.4 mg/dL LAB CHEMISTRY METHOD 06/05/2025 5:09 PM [facility] Blood Blood sample taken from central line / Unknown Existing Catheter / Unknown 06/05/2025 2:59 PM EDT 06/05/2025 4:33 PM EDT Oneil Molina MD LAB BLOOD ORDERABLE S Final Result [facility] [address] [place] [address], * (ABNORMAL) Vitamin B12 and folate (05/18/2025 2:59 PM EDT) Vitamin B-12 248(L) 250 - 900 pcg/mL LAB CHEMISTRY METHOD 05/18/2025 6:04 PM EDT [facility] Folate 7.5 2.8 - 17.0 ng/ml LAB CHEMISTRY METHOD 05/18/2025 6:04 PM EDT [facility] Blood Venous blood specimen / Unknown Venipuncture / Unknown 05/18/2025 2:59 PM EDT 05/18/2025 4:34 PM EDT us Oneil Molina MD LAB BLOOD ORDERABLE S Final Result Performing Organization Address City/[facility]/ZIP Co de Phone Number [facility] [address] [place] [address], [place] [phone] * Iron and TIBC (05/18/2025 2:59 PM EDT) Only the most recent of2 resultswithin the time period is included. Iron 60 50 - 160 mcg/dL LAB CHEMISTRY METHOD 05/18/2025 6:04 PM EDT [facility] TIBC 290 250 - 450 mcg/dL LAB CHEMISTRY METHOD 05/18/2025 6:04 PM EDT [facility] Iron Saturation 21 20 - 50 % LAB CHEMISTRY METHOD 05/18/2025 6:04 PM EDT [facility] Blood Venous blood specimen / Unknown Venipuncture / Unknown 05/18/2025 2:59 PM EDT 05/18/2025 4:34 PM EDT us Oneil Molina MD LAB BLOOD ORDERABLE S Final Result Performing Organization Address City/[facility]/ZIP Co de Phone Number [facility] [address] [place] [address], [place] [phone] * Ferritin (05/18/2025 2:59 PM EDT) Only the most recent of2 resultswithin the time period is included. Ferritin 38 26 - 388 ng/mL LAB CHEMISTRY METHOD 05/18/2025 5:42 PM EDT [facility] Blood Venous blood specimen / Unknown Venipuncture / Unknown 05/18/2025 2:59 PM EDT 05/18/2025 4:34 PM EDT Oneil Molina MD LAB BLOOD ORDERABLE S Final Result [facility] [address] [place] [address], * IR Insert Tunneled CVAD w Subq Port More 5yrs Right (05/05/2025 1:56 PM EDT) Anatomical Region Laterality Modality Right Interventional R adiology 05/05/2025 3:06 PM EDT Impressions 05/05/2025 3:14 PM EDT Successful placement of a right internal jugular [address] compatible PowerPort. The port is available for immediate use. -------- FINAL REPORT -------- Dictated By: Terry Kurtz Dictated Date: 05/05/2025 15:06 ET Assigned Physician: Terry Kurtz Reviewed and Electronically Signed By: Terry Kurtz Signed Date: 05/05/2025 15:14 ET Workstation ID: [id number] Transcribed By: Self Edit Transcribed Date: 05/05/2025 15:06 ET Narrative 05/05/2025 3:14 PM EDT Port placement INDICATION: Colon cancer chemotherapy Interventionalists: Dr. Terry Kurtz Fluoroscopic time: 1.7 minutes. MEDICATIONS: Fentanyl 50 mcg, Versed 2.0 mg and 2% lidocaine. 1 gram of Ancef provided for prophylaxis. PROCEDURE: Informed written consent obtained. Patient brought to angiography placed in supine position. The right internal jugular veins were assessed with ultrasound for patency and images were saved to PACS for later review. The skin overlying the right neck and chest wall were prepped and draped in usual in sterile fashion utilizing maximal sterile barrier technique. Under physician supervision, midazolam and fentanyl was administered intravenously for procedural sedation. Continuous physiologic monitoring was performed throughout the entirety of the procedure by the cardiac cath lab radiology technologist. The physician spent 27 minutes of [id number] sedation time with the patient. Skin was anesthetized with lidocaine. Small stab incision made with a #11 blade scalpel. Under continuous ultrasound guidance, a micropuncture needle was utilized to cannulate the internal jugular vein. Images were stored to PACS. A mandrel wire was then advanced into the superior vena cava. The needle was removed and a 3-5 sheath dilator advanced over the wire. The inner dilator and wire were removed and a 0.035 wire was then advanced into the inferior vena cava. This was then locked in place with a flow switch. Attention was then turned to the pocket and tunnel. After appropriate determination of positioning, additional local anesthetic was injected into the subcutaneous and soft tissues of the anterior chest wall and neck. A linear incision was then made with a #15 blade scalpel. An appropriate sized pocket was bluntly dissected. Hemostasis was achieved in the pocket. Preflushed catheter tubing was then tunneled through to the puncture site in the neck. The flow switch and sheath were then removed and a peel-away sheath was advanced over the wire. The tubing was then advanced into the right atrium and pulled back to the appropriate level after removal of the peel-away sheath. The port reservoir was then connected to the tubing after trimming to the appropriate length. The tubing was secured with the locking device. The port was then tested demonstrating excellent pull and flush. The port was then placed in the pocket. The port was ultimately locked with the appropriate volume of heparin. Radiographically image demonstrates appropriate positioning and appearance of the port. Multilevel closure of the port pocket was then performed utilizing 3-0 Vicryl and liquid adhesive. The puncture site was closed utilizing additional Vicryl and liquid adhesive. Overlying Steri-Strips were placed at the neck site. The patient tolerated procedure well with no immediate complications. Procedure Note Terry Kurtz MD - 05/05/2025 Port placement INDICATION: Colon cancer chemotherapy Interventionalists: Dr. Terry Kurtz Fluoroscopic time: 1.7 minutes. MEDICATIONS: Fentanyl 50 mcg, Versed 2.0 mg and 2% lidocaine. 1 gram ofAncef provided for prophylaxis. PROCEDURE: Informed written consent obtained. Patient brought to angiography placedin supine position. The right internal jugular veins were assessed withultrasound for patency and images were saved to PACS for later review.The skin overlying the right neck and chest wall were prepped and drapedin usual in sterile fashion utilizing maximal sterile barrier technique. Under physician supervision, midazolam and fentanyl was administeredintravenously for procedural sedation. Continuous physiologic monitoringwas performed throughout the entirety of the procedure by the radiologyRN. The physician spent 27 minutes of [id number] sedation time with thepatient. Skin was anesthetized with lidocaine. Small stab incision made with a #11blade scalpel. Under continuous ultrasound guidance, a micropunctureneedle was utilized to cannulate the internal jugular vein. Images werestored to PACS. A mandrel wire was then advanced into the superior venacava. The needle was removed and a 3-5 sheath dilator advanced over thewire. The inner dilator and wire were removed and a 0.035 wire was thenadvanced into the inferior vena cava. This was then locked in place witha flow switch. Attention was then turned to the pocket and tunnel. After appropriatedetermination of positioning, additional local anesthetic was injectedinto the subcutaneous and soft tissues of the anterior chest wall andneck. A linear incision was then made with a #15 blade scalpel. Anappropriate sized pocket was bluntly dissected. Hemostasis was achieved inthe pocket. Preflushed catheter tubing was then tunneled through to thepuncture site in the neck. The flow switch and sheath were then removedand a peel-away sheath was advanced over the wire. The tubing was thenadvanced into the right atrium and pulled back to the appropriate levelafter removal of the peel- away sheath. The port reservoir was thenconnected to the tubing after trimming to the appropriate length. Thetubing was secured with the locking device. The port was then testeddemonstrating excellent pull and flush. The port was then placed in thepocket. The port was ultimately locked with the appropriate volume of heparin. Radiographically image demonstrates appropriate positioning andappearance of the port. Multilevel closure of the port pocket was then performed utilizing 3-0Vicryl and liquid adhesive. The puncture site was closed utilizingadditional Vicryl and liquid adhesive. Overlying Steri-Strips were placedat the neck site. The patient tolerated procedure well with no immediate complications. IMPRESSION: Successful placement of a right internal jugular [address] compatiblePowerPort. The port is available for immediate use. -------- FINAL REPORT -------- Dictated By: Terry Kurtz Dictated Date: 05/05/2025 15:06 ET Assigned Physician: Terry Kurtz Reviewed and Electronically Signed By: Terry Kurtz Signed Date: 05/05/2025 15:14 ET Workstation ID: [id number] Transcribed By: Self Edit Transcribed Date: 05/05/2025 15:06 ET Oneil Molina MD IMG IR PROCEDURES F inal Result * Prothrombin time with INR (04/03/2025 12:04 PM EDT) Pathologist [facility] Protime 12.6 10.6 - 13.9 sec LAB COAGULATION METHOD 04/03/2025 1:54 PM EDT [facility] INR 1.0 LAB COAGULATION METHOD 04/03/2025 1:54 PM EDT [facility] Blood Venous blood specimen / Unknown Venipuncture / Unknown 04/03/2025 12:04 PM EDT 04/03/2025 1:32 PM EDT Oneil Molina MD LAB BLOOD ORDERABLE S Final Result [facility] [address] [place] [address], * CEA (04/03/2025 12:04 PM EDT) Pathologist [facility] CEA <2.0 0.0 - 5.0 ng/mL LAB CHEMISTRY METHOD 04/03/2025 3:34 PM EDT [facility] Blood Venous blood specimen / Unknown Venipuncture / Unknown 04/03/2025 12:04 PM EDT 04/03/2025 1:32 PM EDT Narrative [facility] - 04/03/2025 3:34 PM EDT The Siemens Advia Centaur Chemiluminescent Immunoassay is used. Results obtained with different assay methods or kits cannot be used interchangeably. Results cannot be interpreted as absolute evidence of the presence or absence of malignant disease. us Oneil Molina MD LAB BLOOD ORDERABLE S Final Result [facility] [address] [place] [address], from Last 3 Months Insurance [employer] Advance Directives * Full Code - Default (Latest Code Status on File) Date Activated Date Inactivated Comments 03/09/2025 10:12 AM 03/10/2025 4:31 PM This is order is used when code status has not been discussed with the patient, or code status is otherwise unknown/unconfirmed To update the patient's code status, place a code status order. Do not modify or discontinue any currently active code status orders. Care Teams Morphology Teacher Relationship Specialty Start Date End Date Kevin Lofton MD [address] [place] [address] PCP - General Internal Medicine 10/28/24
--- OUTSIDE RECORDS SUMMARY | 2025-06-11 09:04 | XMS_ITS | Encounter Summary ---
Author Organization [facility] Address [address] [id number] Care Team Providers Care Psychometrician Name Role Phone Kevin Lofton MD Primary Care Provider Encounter Details Date Type Department Care Team (Late st Contact Info) Description 09/19/2024 Scanned Document GENERIC EXTERNAL DATA DEPARTMENT Kevin Lofton MD [address] [place] [address] Social History Tobacco Use Types Packs/Day Years Used Date Smoking Tobacco: Never Assessed Sex and Gender Information Value Date Recorded Sex Assigned at Not on file Legal Sex Male 10:43 AM EST Gender Identity Not on file Sexual Orientation Not on file documented as of this encounter Plan of Treatment Not on file documented as of this encounter Visit Diagnoses Not on filedocumented in this encounter Care Teams Psychometrician Relationship Specialty Start Date End Date Kevin Lofton MD [address] [place] [id number] PCP - General Internal Medicine 09/19/24 documented as of this encounter
== END 2025-06-11 08:59 | disposition home or self-care (01) ==
LOC: HO.HUSH 08:34
PROVIDERS: PCP Internal Medicine; Visit Provider Urology
DX: N32.0 Bladder-neck obstruction (principal); N52.01 Erectile dysfunction due to arterial insufficiency
CPT/HCPCS: 99214

== ENCOUNTER → 2025-06-11 08:33 | Outpatient (BNVA) | payer MEDICARE, SELFPAY | PROVIDERS: PCP Internal Medicine; Visit Provider Urology | DX: N32.0 Bladder-neck obstruction (principal); N52.01 Erectile dysfunction due to arterial insufficiency | CPT/HCPCS: 99212 ==